=== PATIENT | female | born 1960 | race Caucasian/White ===

== ENCOUNTER 2016-07-12 14:33 | Emergency (ER) | payer OTHER ==
[~2016-07-12] VITALS: Ht 152.4 cm; Wt 77.1 kg
--- NOTE | 2016-07-12 14:55 | NUR ---
PT LEFT SIDED PELVIC AND THIGH PAIN X 5 DAYS. NON TRAUMATIC. PLACED ON MONITOR. VSS. AWAITING MD ORDER.
[2016-07-12 15:52] LABS: APPEARANCE,URINE Clear (CLEAR); BILIRUBIN,URINE Negative (NEGATIVE); BLOOD, URINE Negative Ery/uL (NEGATIVE); COLOR,URINE Yellow (YELLOW); KETONES,URINE Negative (NEGATIVE); LEUKOCYTE ESTERASE ,URINE Negative (NEGATIVE); NITRITE, URINE Negative (NEGATIVE); PH,URINE 5.5 (5.0-8.0); PROTEIN,URINE Negative (NEGATIVE); UGLUCOSE Negative (NEGATIVE)
--- NOTE | 2016-07-12 16:38 | NUR ---
Patient discharged to home in stable condition. Written and verbal after care instructions given. Patient verbalizes understanding of instruction.
[2016-07-12 16:40] VITALS: BP 140/72
== END 2016-07-12 16:40 | disposition home or self-care (01) ==
LOC: ER 14:36
DX: M25.552 Pain in left hip (principal); E03.9 Hypothyroidism, unspecified; E78.00 Pure hypercholesterolemia, unspecified; I10 Essential (primary) hypertension
CPT/HCPCS: 72100; 73503; 81001; 99285; A4606; Z7610; 73510-TC; 81000-TC

== ENCOUNTER 2019-01-22 16:58 | Emergency (ER) | payer SELFPAY ==
[~2019-01-22] VITALS: Ht 152.4 cm; Wt 80.7 kg
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
--- NOTE | 2019-01-22 18:28 | NUR ---
XRAY AT BEDSIDE
--- NOTE | 2019-01-22 20:30 | NUR ---
Patient discharged to home in stable condition. Written and verbal after care instructions given. Patient verbalizes understanding of instruction.Pt ambulatory with a steady gait
[2019-01-22 21:05] VITALS: BP 141/74
== END 2019-01-22 21:07 | disposition home or self-care (01) ==
LOC: ER 17:06
DX: R07.89 Other chest pain (principal); I10 Essential (primary) hypertension; E78.00 Pure hypercholesterolemia, unspecified; E03.9 Hypothyroidism, unspecified; V49.49XA Driver injured in collision with other motor vehicles in traffic accident, initial encounter; Y93.89 Activity, other specified; Y92.488 Other paved roadways as the place of occurrence of the external cause; Y99.8 Other external cause status
CPT/HCPCS: 36415; 71045-TC; 73060-TC; 84484-TC